=== PATIENT | female | born 1965 | race American Indian/Alaskan Native ===

== ENCOUNTER 2021-11-02 02:29 | Observation (INO) | payer OTHER ==
[2021-11-02] MEDS ORDERED: ONDANSETRON 4 MG/2 ML INJ IV ONE (02:50)
[2021-11-02] MEDS ORDERED: ATROPINE 0.1% (1 MG/10 ML) CARDIAC SYRINGE IV PRN (02:50)
[2021-11-02] MEDS ORDERED: PANTOPRAZOLE 40 MG INJ IV ONE (02:50)
--- NOTE | 2021-11-02 02:51 | Emergency Department Report ---
ED General Adult HPI - General Chief complaint: Chest Pain Stated complaint: CHEST PAIN Time Seen by Provider: 11/02/21 02:48 Source: patient, EMS (Verbal report received from emergency medical services. EMS documentation not available at time of chart dictation ), RN notes reviewed, old records reviewed Mode of arrival: Stretcher - History of Present Illness Initial comments: This is a pleasant and cooperative 56-year-old female. Her primary care provider is with the [facility]. Her past medical history includes hypertension, depression, fibroids, obesity, anemia, prediabetes. The patient is referred to this emergency room from a local acute care facility within the [facility]. Patient reportedly had several hours of chest pain, and develops near syncope, bradycardia, hypotension, nausea, and diaphoresis. She was given Zofran and atropine. Initially, heart rate in the 30s, now in the 70s. The patient states that she has central chest wall pain, which does not radiate to the back, arms or neck. The patient denies travel, surgery, immobilization, DVT and pulmonary embolism risk factors. Home medications include Norvasc, Lexapro, HCTZ, Atarax, and ibuprofen, as well as triamcinolone. In the acute care facility, she was given lactated Ringer's, Zofran, acetaminophen, atropine, and normal saline. EMS reports essentially unremarkable vital signs in the field, with exception of mild hypotension. They did not note any bradycardia. Received aspirin prior to prehospital arrival. -: Sudden, hour(s) Location: chest Radiation: non-radiation Consistency: constant Improves with: rest Worsens with: movement - Related Data Home Medications Medication Instructions Recorded Confirmed Last Taken hydroCHLOROthiazide [Hctz] 25 mg PO QDAY 10/07/12 10/07/12 10/07/12 lisinopriL [Zestril] 20 mg PO QDAY 10/07/12 10/07/12 10/07/12 Previous Rx's Medication Instructions Recorded Last Taken Type Docusate Sodium [Colace] 100 mg PO BID #20 capsule 10/27/12 Unknown Rx Starch 51%(Nf) [Anusol] 1 each SD BID #20 supp.rect 10/27/12 Unknown Rx polyethylene glycoL 3350 [Miralax] 17 gm PO DAILY #5 powder 10/27/12 Unknown Rx Promethazine [Phenergan TAB] 25 mg PO Q6HR PRN #20 tab 02/02/15 Unknown Rx traMADoL [Ultram] 50 mg PO Q6HR PRN #20 tablet 02/02/15 Unknown Rx Allergies Allergy/AdvReac Type Severity Reaction Status Date / Time acetaminophen [From Percocet] Allergy Rash Verified 10/07/12 11:28 oxycodone HCl [From Percocet] Allergy Rash Verified 10/07/12 11:28 prednisone Allergy Rash Verified 10/27/12 14:36 ED Review of Systems ROS: Stated complaint: CHEST PAIN Other details as noted in HPI Constitutional: diaphoresis, malaise, weakness. denies: fever Eyes: denies: eye discharge Respiratory: denies: wheezing Cardiovascular: chest pain Gastrointestinal: nausea. denies: vomiting, hematemesis, melena, hematochezia Neurological: weakness Psychiatric: anxiety Hematological/Lymphatic: denies: easy bleeding ED Past Medical Hx - Past Medical History Hx Hypertension: Yes Additional medical history: fibroids - Surgical History Additional Surgical History: c section - Social History Smoking Status: Never Smoker Substance Use Type: None - Medications Home Medications: Home Medications Medication Instructions Recorded Confirmed Last Taken Type hydroCHLOROthiazide [Hctz] 25 mg PO QDAY 10/07/12 10/07/12 10/07/12 History lisinopriL [Zestril] 20 mg PO QDAY 10/07/12 10/07/12 10/07/12 History Docusate Sodium [Colace] 100 mg PO BID #20 capsule 10/27/12 Unknown Rx Starch 51%(Nf) [Anusol] 1 each SD BID #20 supp.rect 10/27/12 Unknown Rx polyethylene glycoL 3350 [Miralax] 17 gm PO DAILY #5 powder 10/27/12 Unknown Rx Promethazine [Phenergan TAB] 25 mg PO Q6HR PRN #20 tab 02/02/15 Unknown Rx traMADoL [Ultram] 50 mg PO Q6HR PRN #20 tablet 02/02/15 Unknown Rx ED Physical Exam - General Limitations: No Limitations General appearance: alert, in no apparent distress, obese - Head Head exam: Present: atraumatic, normocephalic - Eye Eye exam: Present: normal appearance, EOMI. Absent: nystagmus - ENT ENT exam: Present: normal exam, normal orophraynx, mucous membranes moist, normal external ear exam - Neck Neck exam: Present: normal inspection, full ROM - Respiratory Respiratory exam: Present: normal lung sounds bilaterally, chest wall tenderness. Absent: respiratory distress, wheezes, rales, rhonchi, stridor, decreased breath sounds - Cardiovascular Cardiovascular Exam: Present: regular rate, normal rhythm, normal heart sounds. Absent: bradycardia, tachycardia, irregular rhythm, systolic murmur, diastolic murmur, rubs, gallop - GI/Abdominal GI/Abdominal exam: Present: soft. Absent: distended, tenderness, guarding, rebound, rigid, pulsatile mass - Extremities Exam Extremities exam: Present: normal inspection, full ROM, other (2+ pulses noted in the bilateral upper and lower extremities. There is no palpable cord. negative Homans sign. Muscular compartments are soft. The pelvis is stable.). Absent: pedal edema, calf tenderness - Back Exam Back exam: Present: normal inspection. Absent: tenderness, CVA tenderness (R), CVA tenderness (L), paraspinal tenderness, vertebral tenderness - Neurological Exam Neurological exam: Present: alert, oriented X3, other (No facial droop. Tongue midline. Extraocular movements intact bilaterally. Facial sensation intact to light touch in V1, V2, V3 distribution bilaterally. 5 and a 5 strength in 4 extremities. Sensation intact to light touch in 4 extremities.). Absent: motor sensory deficit - Psychiatric Psychiatric exam: Present: anxious - Skin Skin exam: Present: warm, dry, intact, normal color. Absent: rash ED Course Vital Signs 11/02/21 03:04 Temperature 98 F Pulse Rate 80 Respiratory 16 Rate Blood Pressure 93/50 [Right] O2 Sat by Pulse 98 Oximetry - Reevaluation(s) Reevaluation #1: 11/02/21 03:44 Differential diagnosis, including but not limited to: Orthostasis, vagal event, structural cardiac disease, acute coronary syndrome, electrolyte derangement, thyroid derangement, GERD, gastritis, hiatal hernia, costochondritis, pneumonia Assessment and plan: 56-year-old female, not currently tachycardic, tachypneic or hypoxic, who denies DVT and pulmonary embolism risk factors, low risk by Wells criteria for pulmonary embolism, equal pulses in the upper and lower extremities, unremarkable chest x-ray, no mediastinal mass, no pulsatile abdominal mass, aortic disease unlikely, with nonspecific chest pain, history of near syncope, nausea, diaphoresis and marked bradycardia. Heart rate currently in the 80s. Blood pressure in the high 90s. Patient is awake and alert, protecting airway, and anxious, but not in significant distress. Patient was seen at an outside [facility] acute care center, 911 was emergently activated, as she required more care and resources than what the acute care center could provide. I contacted the [facility] physician, Dr. Ivey. She authorizes this patient to be admitted to our facility for cardiac risk stratification and evaluation. Laboratory studies pending. We will treat the patient's pain. Patient received Tylenol in the acute care center, and also can tolerate morphine. She is agreeable to admission and hospitalization. Once laboratory studies have resulted, we will admit the patient to the medical service. She does not require atropine at this time. 11/02/21 04:14 ER EKG is markedly abnormal. There is ST abnormality in the inferior leads. Reciprocal changes are not present. The EKGs do not meet criteria for STEMI. Contacted security guard dispatcher on-call, Dr. Micaela Goldstein We discussed the patient's history, physical, laboratory studies and imaging studies, and EKG findings. He has also evaluated the patient's prehospital bradycardia EKG, as well as initial ER EKGs. He also recommends that this EKG does not meet criteria for activation of the cardiac catheterization lab. He advises initiation of heparin. We will obtain serial EKGs every 10 minutes for the next hour. We will continue to treat the patient's pain. Dr Micaela Goldstein indicates that himself or one of his colleagues will be able to follow in consultation. 11/02/21 04:41 Patient on cell phone. She is in no acute distress. She states that she is still having some pain and some discomfort. Multiple repeat serial EKGs are thus far not consistent with a STEMI 11/02/21 05:12 Patient resting comfortably in no acute distress. Multiple repeat EKGs are not consistent with a STEMI. Hospital physician, Dr. Micaela hBatia to admit to [facility] ED Medical Decision Making - Lab Data Result diagrams: 11/02/21 03:02 11/02/21 03:02 Vital Signs 11/02/21 03:04 Temperature 98 F Pulse Rate 80 Respiratory 16 Rate Blood Pressure 93/50 [Right] O2 Sat by Pulse 98 Oximetry Lab Results 11/02/21 11/02/21 Range/Units 03:02 03:02 WBC 11.7 H (4.5-11.0) K/mm3 RBC 4.68 (3.65-5.03) M/mm3 Hgb 13.3 (10.1-14.3) gm/dl Hct 40.5 (30.3-42.9) % MCV 87 (79-97) fl MCH 28 (28-32) pg MCHC 33 (30-34) % RDW 13.8 (13.2-15.2) % Plt Count 243 (140-440) K/mm3 Lymph % (Auto) 10.7 L (13.4-35.0) % [place] % (Auto) 7.5 H (0.0-7.3) % Eos % (Auto) 0.3 (0.0-4.3) % Baso % (Auto) 0.6 (0.0-1.8) % Lymph # (Auto) 1.3 (1.2-5.4) K/mm3 [place] # (Auto) 0.9 H (0.0-0.8) K/mm3 Eos # (Auto) 0.0 (0.0-0.4) K/mm3 Baso # (Auto) 0.1 (0.0-0.1) K/mm3 Seg Neutrophils % 80.9 H (40.0-70.0) % Seg Neutrophils # 9.5 H (1.8-7.7) K/mm3 PT 13.2 (12.2-14.9) Sec. INR 0.88 (0.87-1.13) APTT 30.3 (24.2-36.6) Sec. - EKG Data -: EKG Interpreted by Ms - EKG Data 11/02/21 03:42 Prehospital EKG is interpreted. Prehospital EKG performed at 1: 21 AM, shows bradycardia, with a heart rate of 38 bpm. This is sinus, with a normal axis, and normal intervals. There is motion artifact. This is not a STEMI. Prehospital EKG performed at 1: 0 8 AM shows sinus rhythm, with a rate of 74 bpm . Normal axis, normal P wave axis, borderline left ventricular hypertrophy, nonspecific ST abnormality. This is an abnormal EKG. This is not a STEMI EMS EKG is interpreted at 03: 00 AM Sinus rhythm, with a rate of approximately 83 bpm. There is a normal axis, there is normal P wave axis, there is motion artifact, and the QTC is 4 1 6 ms. This is an abnormal EKG. This is not a STEMI - Radiology Data Radiology results: pending, image reviewed CHEST 1 VIEW 11/02/2021 3:11 AM INDICATION / CLINICAL INFORMATION: Chest Pain. COMPARISON: None available. FINDINGS: SUPPORT DEVICES: None. HEART / MEDIASTINUM: The cardiac silhouette appears enlarged, but this may be accentuated by AP technique. LUNGS / PLEURA: No significant pulmonary or pleural abnormality. No pneumothorax. ADDITIONAL FINDINGS: None IMPRESSION: 1. No acute chest process. Signer Name: Dariel Castorena MD Signed: 11/02/2021 2:46 AM Workstation Name: [id number] Critical Care Time: Yes Critical care time in (mins) excluding proc time.: 45 Critical care attestation.: If time is entered above; I have spent that time in minutes in the direct care of this critically ill patient, excluding procedure time. ED Disposition Clinical Impression: History of bradycardia, Acute chest pain, Near syncope Disposition: 09 ADMITTED INPATIENT Is pt being admited?: Yes Does the pt Need Aspirin: No (Administered by EMS) Condition: Stable Instructions: Chest Pain (ED) Referrals: JUDY COX [Other] - 3-5 Days Heart Score - HEART Score History: Moderately suspicious EKG: Non-specific Age: 45-65 Risk factors: 1-2 risk factors Troponin: < normal limit HEART Score: 4 - EKG Read Time Time EKG Completed: 03:00 EKG Read Time: 03:05 (EMS EKG)
[2021-11-02] MEDS ORDERED: MORPHINE 4 MG/1 ML INJ IV ONE (03:05)
[2021-11-02 03:31] LABS: Basophils # (Auto) 0.1 K/mm3 (0.0-0.1); Basophils % (Auto) 0.6 % (0.0-1.8); Eosinophils % (Auto) 0.3 % (0.0-4.3); Hematocrit 40.5 % (30.3-42.9); Hemoglobin 13.3 gm/dl (10.1-14.3); Lymphocytes # (Auto) 1.3 K/mm3 (1.2-5.4); Lymphocytes % (Auto) 10.7 % (13.4-35.0); Mean Corpuscular HGB Conc 33 % (30-34); Mean Corpuscular Volume 87 fl (79-97); Monocytes # (Auto) 0.9 K/mm3 (0.0-0.8); Monocytes % (Auto) 7.5 % (0.0-7.3); Platelet Count 243 K/mm3 (140-440); Red Blood Count 4.68 M/mm3 (3.65-5.03); Red Cell Distribution Width 13.8 % (13.2-15.2)
[2021-11-02 03:39] LABS: INR 0.88 (0.87-1.13); Partial Thromboplastin Time 30.3 Sec. (24.2-36.6)
[2021-11-02 03:48] LABS: Alanine Aminotransferase 25 units/L (7-56); Albumin 4.1 g/dL (3.9-5); BUN/Creatinine Ratio 19; Blood Urea Nitrogen 15 mg/dL (7-17); Calcium 8.7 mg/dL (8.4-10.2); Hemolysis Index 17
--- NOTE | 2021-11-02 03:51 | XRay Report ---
CHEST 1 VIEW 11/02/2021 3:11 AM INDICATION / CLINICAL INFORMATION: Chest Pain. COMPARISON: None available. FINDINGS: SUPPORT DEVICES: None. HEART / MEDIASTINUM: The cardiac silhouette appears enlarged, but this may be accentuated by AP techn ique. LUNGS / PLEURA: No significant pulmonary or pleural abnormality. No pneumothorax. ADDITIONAL FINDINGS: None IMPRESSION: 1. No acute chest process. Signer Name: Dariel Castorena MD Signed: 11/02/2021 3:46 AM Workstation Name: [email or web address]
[2021-11-02] MEDS ORDERED: HEPARIN BOLUS 10,000 UNIT/10 ML VIAL IV ONE (04:13)
[2021-11-02] MEDS ORDERED: MORPHINE 4 MG/1 ML INJ IV PRN (04:21)
[2021-11-02] MEDS ORDERED: HEPARIN PRN BOLUS(standard intensity drip) IV (04:35)
[2021-11-02] MEDS ORDERED: HEPARIN/ 0.45% NACL DRIP 25,000 UNIT/250 ML BAG IV SCH (05:00)
[2021-11-02] MEDS: SODIUM CHLORIDE 0.9% 1000 ML 1,000 ML IV ONE (05:11)
[2021-11-02] MEDS ORDERED: NALOXONE 0.4 MG/1 ML INJ IV PRN (05:13)
[2021-11-02] MEDS ORDERED: ACETAMINOPHEN 325 MG TAB PO PRN (05:13)
[2021-11-02] MEDS: MORPHINE 2 MG/1 ML INJ IV PRN ×2 (08:19→16:20)
[2021-11-02] MEDS: ONDANSETRON 4 MG/2 ML INJ IV PRN ×2 (08:19→16:20)
[2021-11-02] MEDS ORDERED: KETOROLAC 30 MG/1 ML INJ IV NR (10:30)
[2021-11-02] MEDS ORDERED: MIDAZOLAM 2 MG/2 ML INJ ONE (10:41)
[2021-11-02] MEDS ORDERED: NITROGLYCERIN SYRINGE 3 ML ONE (10:41)
[2021-11-02] MEDS ORDERED: fentaNYL 100 MCG/2 ML INJ ONE (10:41)
[2021-11-02] MEDS ORDERED: HEPARIN 10,000 UNITS/10 ML VIAL ONE (10:41)
[2021-11-02] MEDS ORDERED: HEPARIN/NS 5000 UNIT/500ML 1,000 ML IR ONE (10:41)
[2021-11-02] MEDS ORDERED: SODIUM CHLORIDE 0.9% 500 ML 500 ML ONE (10:42)
[2021-11-02] MEDS ORDERED: LIDOCAINE (2%) 20 MG/1 ML VIAL 20 ML MDV INFILTRATI ONE (10:42)
[2021-11-02] MEDS: VERAPAMIL 5 MG/2 ML INJ ONE ×2 (10:50→11:25)
[2021-11-02] MEDS ORDERED: KETOROLAC 30 MG/1 ML INJ IV ONE (12:00)
--- NOTE | 2021-11-02 12:00 | Consultation ---
History of Present Illness Consult date: 11/02/21 Requesting physician: ISAAC MORAN Consult reason: chest pain History of present illness: This patient is a 56-year-old female with a significant history of hypertension, pre-DM, anemia, depression, fibroids. She is previously unknown to our practice, followed by [facility]. Patient presents to [facility] ER via EMS for chief complaint of chest pain which she describes as 10 out of 10 dull, nonradiating, constant, with no palliative or provoking factors, with associated nausea, diaphoresis, hypotension, bradycardia. Repeat twelve- lead shows inferior ST segment elevation. Patient was taken [facility] this a.m. which revealed normal coronary arteries. Normal LVEF. Patient denies any weakness, dizziness, shortness of breath, nausea vomiting diarrhea, abdominal pain or recent illness or exposure. Echocardiogram is pending. Past History Past Medical History: other (See HPI) Medications and Allergies Allergies Allergy/AdvReac Type Severity Reaction Status Date / Time acetaminophen [From Percocet] Allergy Rash Verified 10/07/12 11:28 oxycodone HCl [From Percocet] Allergy Rash Verified 10/07/12 11:28 prednisone Allergy Rash Verified 10/27/12 14:36 Home Medications Medication Instructions Recorded Confirmed Last Taken Type hydroCHLOROthiazide [Hctz] 25 mg PO QDAY 10/07/12 10/07/12 10/07/12 History lisinopriL [Zestril] 20 mg PO QDAY 10/07/12 10/07/12 10/07/12 History Docusate Sodium [Colace] 100 mg PO BID #20 capsule 10/27/12 Unknown Rx Starch 51%(Nf) [Anusol] 1 each [place] BID #20 supp.rect 10/27/12 Unknown Rx polyethylene glycoL 3350 [Miralax] 17 gm PO DAILY #5 powder 10/27/12 Unknown Rx Promethazine [Phenergan TAB] 25 mg PO Q6HR PRN #20 tab 02/02/15 Unknown Rx traMADoL [Ultram] 50 mg PO Q6HR PRN #20 tablet 02/02/15 Unknown Rx Active Meds: Active Medications Acetaminophen (Acetaminophen 325 Mg Tab) 650 mg PO Q4H PRN PRN Reason: Pain MILD(1-3)/Fever >100.5/SNIDER Atropine Sulfate (Atropine 0.1% (1 Mg/10 Ml) Cardiac Syringe) 0.5 mg IV PRN PRN PRN Reason: Bradycardia Heparin Sodium (Porcine) (Heparin Prn Bolus(Standard Intensity Drip)) 4,000 unit 40 unit/kg (4000 unit) IV Q6H PRN PRN Reason: For Heparin Anti-Xa < 0.1 Heparin Sodium/Sodium Chloride (Heparin/ 0.45% Nacl-25,000 Unit/250 Ml) 25,000 unit in 250 mls @ 9.73 mls/hr IV TITRATE [facility]; Protocol Last Admin: 11/02/21 05:11 Dose: 11 units/kg/hr, 9.73 mls/hr Ketorolac Tromethamine (Ketorolac 30 Mg/1 Ml Inj) 30 mg IV ONCE ONE Stop: 11/02/21 12:01 Morphine Sulfate (Morphine 2 Mg/1 Ml Inj) 2 mg IV Q4H PRN PRN Reason: Pain, Moderate (4-6) Last Admin: 11/02/21 08:19 Dose: 2 mg Naloxone HCl (Naloxone 0.4 Mg/1 Ml Inj) 0.1 mg IV Q2MIN PRN PRN Reason: Res Rate </= 8 or 02 SAT < 92% Ondansetron HCl (Ondansetron 4 Mg/2 Ml Inj) 4 mg IV Q8H PRN PRN Reason: Nausea And Vomiting Last Admin: 11/02/21 08:19 Dose: 4 mg Sodium Chloride (Sodium Chloride 0.9% 10 Ml Flush Syringe) 10 ml IV BID [facility] Last Admin: 11/02/21 09:35 Dose: 10 ml Sodium Chloride (Sodium Chloride 0.9% 10 Ml Flush Syringe) 10 ml IV PRN PRN PRN Reason: LINE FLUSH Review of Systems Constitutional: no weight loss, no weight gain, no fever, no chills, no sweats, no night sweats Ears, nose, mouth and throat: no ear pain, no ear discharge, no tinnitis, no decreased hearing, no nose pain, no nasal congestion, no nasal discharge, no sinus pressure, no sinus pain Cardiovascular: chest pain, no orthopnea, no palpitations, no rapid/irregular heart beat, no edema, no syncope, no lightheadedness, no shortness of breath Respiratory: no cough, no cough with sputum, no excessive sputum, no hemoptysis, no shortness of breath Gastrointestinal: no abdominal pain, no nausea, no vomiting, no diarrhea Musculoskeletal: no neck stiffness, no neck pain, no shooting arm pain, no arm numbness/tingling, no low back pain, no shooting leg pain, no leg numbness/tingling Integumentary: no rash, no pruritis, no redness, no sores, no wounds Neurological: no head injury, no transient paralysis, no paralysis, no weakness, no parathesias, no numbness, no tingling, no seizures, no syncope Psychiatric: no anxiety, no memory loss, no change in sleep habits Endocrine: no cold intolerance, no heat intolerance Hematologic/Lymphatic: no easy bruising, no easy bleeding Allergic/Immunologic: no urticaria Physical Examination Last Vital Signs Temp 98 F 11/02/21 03:04 Pulse 59 L 11/02/21 06:20 Resp 25 H 11/02/21 06:20 BP 81/44 11/02/21 06:20 Pulse Ox 96 11/02/21 06:20 General appearance: mild distress HEENT: Positive: PERRL Neck: Positive: neck supple Cardiac: Positive: Reg Rate and Rhythm Lungs: Positive: Normal Exam Neuro: Positive: Grossly Intact Abdomen: Positive: Unremarkable, Soft, Active Bowel Sounds Skin: Positive: Clear Musculoskeletal: No Fluid Collection, No Pain, Normal Range of Motion Extremities: Present: normal. Absent: edema Results 11/02/21 03:02 11/02/21 03:02 Cardiac Enzymes 11/02/21 Range/Units 03:02 AST 38 (5-40) units/L Coagulation 11/02/21 Range/Units 03:02 PT 13.2 (12.2-14.9) Sec. INR 0.88 (0.87-1.13) APTT 30.3 (24.2-36.6) Sec. CBC 11/02/21 Range/Units 03:02 WBC 11.7 H (4.5-11.0) K/mm3 RBC 4.68 (3.65-5.03) M/mm3 Hgb 13.3 (10.1-14.3) gm/dl Hct 40.5 (30.3-42.9) % Plt Count 243 (140-440) K/mm3 Lymph # (Auto) 1.3 (1.2-5.4) K/mm3 [place] # (Auto) 0.9 H (0.0-0.8) K/mm3 Eos # (Auto) 0.0 (0.0-0.4) K/mm3 Baso # (Auto) 0.1 (0.0-0.1) K/mm3 Comprehensive Metabolic Panel 11/02/21 Range/Units 03:02 Sodium 138 (137-145) mmol/L Potassium 3.7 (3.6-5.0) mmol/L Chloride 99.5 (98-107) mmol/L Carbon Dioxide 24 (22-30) mmol/L BUN 15 (7-17) mg/dL Creatinine 0.8 (0.6-1.2) mg/dL Glucose 115 H (65-100) mg/dL Calcium 8.7 (8.4-10.2) mg/dL AST 38 (5-40) units/L ALT 25 (7-56) units/L Alkaline Phosphatase 83 (35-129) units/L Total Protein 7.2 (6.3-8.2) g/dL Albumin 4.1 (3.9-5) g/dL - Imaging and Cardiology Echo: pending Cardiac cath: report reviewed ([facility] 11/02/2021: Normal coronary arteries) EKG: report reviewed, image reviewed EKG interpretations - Telemetry EKG Rhythm: Sinus Rhythm - EKG Sinus rhythms and dysrhythmias: sinus rhythm Assessment and Plan Chest pain in setting of normal coronary arteries * EKG shows possible ischemic changes. Troponin is negative x2. [facility] this a.m. shows normal coronary arteries. * Discontinue heparin drip. * Echocardiogram is pending Pericarditis * Initiate indomethacin 25 mg 3 times daily p.o. * Continue to monitor on telemetry DVT prophylaxis * Heparin SQ Echocardiogram is pending. We will follow This patient was seen in conjunction with Dr Micaela Goldstein who agrees with this assessment and plan of care - Patient Problems (1) DVT prophylaxis Current Visit: Yes Status: Acute (2) Acute chest pain Current Visit: Yes Status: Acute (3) History of bradycardia Current Visit: Yes Status: Acute (4) Near syncope Current Visit: Yes Status: Acute
--- NOTE | 2021-11-02 12:18 | History and Physical Report ---
History of Present Illness Date of examination: 11/02/21 Date of admission: 11/02/21 05:13 Chief complaint: CP History of present illness: his patient is a 56-year-old female with a significant history of hypertension, pre-DM, anemia, depression, fibroids followed by [facility] presented to our facility and [facility] ER via EMS for chief complaint of chest pain. The patient describes the pain as 10 out of 10 dull, nonradiating, constant, with no palliative or provoking factors, with associated nausea, diaphoresis, hypotension, bradycardia. Patient denied any weakness, dizziness, shortness of breath, nausea vomiting diarrhea, abdominal pain or recent illness or exposure. Past History Past Medical History: diabetes, hypertension, other (Fibroids,) Past Surgical History: No surgical history Social history: no significant social history Family history: no significant family history Medications and Allergies Allergies Allergy/AdvReac Type Severity Reaction Status Date / Time acetaminophen [From Percocet] Allergy Rash Verified 10/07/12 11:28 oxycodone HCl [From Percocet] Allergy Rash Verified 10/07/12 11:28 prednisone Allergy Rash Verified 10/27/12 14:36 Home Medications Medication Instructions Recorded Confirmed Last Taken Type hydroCHLOROthiazide [Hctz] 25 mg PO QDAY 10/07/12 10/07/12 10/07/12 History lisinopriL [Zestril] 20 mg PO QDAY 10/07/12 10/07/12 10/07/12 History Docusate Sodium [Colace] 100 mg PO BID #20 capsule 10/27/12 Unknown Rx Starch 51%(Nf) [Anusol] 1 each GA BID #20 supp.rect 10/27/12 Unknown Rx polyethylene glycoL 3350 [Miralax] 17 gm PO DAILY #5 powder 10/27/12 Unknown Rx Promethazine [Phenergan TAB] 25 mg PO Q6HR PRN #20 tab 02/02/15 Unknown Rx traMADoL [Ultram] 50 mg PO Q6HR PRN #20 tablet 02/02/15 Unknown Rx Active Meds: Active Medications Acetaminophen (Acetaminophen 325 Mg Tab) 650 mg PO Q4H PRN PRN Reason: Pain MILD(1-3)/Fever >100.5/SNIDER Atropine Sulfate (Atropine 0.1% (1 Mg/10 Ml) Cardiac Syringe) 0.5 mg IV PRN PRN PRN Reason: Bradycardia Indomethacin (Indomethacin 25 Mg Cap) 25 mg PO Q8HR [facility] Ketorolac Tromethamine (Ketorolac 30 Mg/1 Ml Inj) 30 mg IV ONCE ONE Stop: 11/02/21 12:01 Morphine Sulfate (Morphine 2 Mg/1 Ml Inj) 2 mg IV Q4H PRN PRN Reason: Pain, Moderate (4-6) Last Admin: 11/02/21 08:19 Dose: 2 mg Naloxone HCl (Naloxone 0.4 Mg/1 Ml Inj) 0.1 mg IV Q2MIN PRN PRN Reason: Res Rate </= 8 or 02 SAT < 92% Ondansetron HCl (Ondansetron 4 Mg/2 Ml Inj) 4 mg IV Q8H PRN PRN Reason: Nausea And Vomiting Last Admin: 11/02/21 08:19 Dose: 4 mg Sodium Chloride (Sodium Chloride 0.9% 10 Ml Flush Syringe) 10 ml IV BID EROS Last Admin: 11/02/21 09:35 Dose: 10 ml Sodium Chloride (Sodium Chloride 0.9% 10 Ml Flush Syringe) 10 ml IV PRN PRN PRN Reason: LINE FLUSH Review of Systems All systems: negative Exam - Constitutional Vitals: Temp Pulse Resp BP Pulse Ox 98 F 59 L 25 H 81/44 96 11/02/21 03:04 11/02/21 06:20 11/02/21 06:20 11/02/21 06:20 11/02/21 06:20 General appearance: Present: no acute distress, well-nourished - EENT Eyes: Present: PERRL ENT: hearing intact, clear oral mucosa - Neck Neck: Present: supple, normal ROM - Respiratory Respiratory effort: normal Respiratory: bilateral: CTA - Cardiovascular Heart Sounds: Present: S1 & S2. Absent: rub, click - Extremities Extremities: pulses symmetrical, No edema Peripheral Pulses: within normal limits - Abdominal General gastrointestinal: Present: soft, non-tender, non-distended, normal bowel sounds Female genitourinary: Present: normal - Integumentary Integumentary: Present: clear, warm, dry - Musculoskeletal Musculoskeletal: gait normal, strength equal bilaterally - Psychiatric Psychiatric: appropriate mood/affect, intact judgment & insight - Neurologic Neurologic: CNII-XII intact, moves all extremities HEART Score - HEART Score EKG: Non-specific Age: 45-65 Risk factors: 1-2 risk factors Troponin: Troponin T < 0.010 ng/mL (0.00-0.029) 11/02/21 09:38 Troponin: < normal limit Results - Labs CBC & Chem 7: 11/02/21 03:02 11/02/21 03:02 Labs: Laboratory Last Values WBC 11.7 K/mm3 (4.5-11.0) H 11/02/21 03:02 RBC 4.68 M/mm3 (3.65-5.03) 11/02/21 03:02 Hgb 13.3 gm/dl (10.1-14.3) 11/02/21 03:02 Hct 40.5 % (30.3-42.9) 11/02/21 03:02 MCV 87 fl (79-97) 11/02/21 03:02 MCH 28 pg (28-32) 11/02/21 03:02 MCHC 33 % (30-34) 11/02/21 03:02 RDW 13.8 % (13.2-15.2) 11/02/21 03:02 Plt Count 243 K/mm3 (140-440) 11/02/21 03:02 Lymph % (Auto) 10.7 % (13.4-35.0) L 11/02/21 03:02 [place] % (Auto) 7.5 % (0.0-7.3) H 11/02/21 03:02 Eos % (Auto) 0.3 % (0.0-4.3) 11/02/21 03:02 Baso % (Auto) 0.6 % (0.0-1.8) 11/02/21 03:02 Lymph # (Auto) 1.3 K/mm3 (1.2-5.4) 11/02/21 03:02 [place] # (Auto) 0.9 K/mm3 (0.0-0.8) H 11/02/21 03:02 Eos # (Auto) 0.0 K/mm3 (0.0-0.4) 11/02/21 03:02 Baso # (Auto) 0.1 K/mm3 (0.0-0.1) 11/02/21 03:02 Seg Neutrophils % 80.9 % (40.0-70.0) H 11/02/21 03:02 Seg Neutrophils # 9.5 K/mm3 (1.8-7.7) H 11/02/21 03:02 PT 13.2 Sec. (12.2-14.9) 11/02/21 03:02 INR 0.88 (0.87-1.13) 11/02/21 03:02 APTT 30.3 Sec. (24.2-36.6) 11/02/21 03:02 Sodium 138 mmol/L (137-145) 11/02/21 03:02 Potassium 3.7 mmol/L (3.6-5.0) 11/02/21 03:02 Chloride 99.5 mmol/L (98-107) 11/02/21 03:02 Carbon Dioxide 24 mmol/L (22-30) 11/02/21 03:02 Anion Gap 18 mmol/L 11/02/21 03:02 BUN 15 mg/dL (7-17) 11/02/21 03:02 Creatinine 0.8 mg/dL (0.6-1.2) 11/02/21 03:02 Estimated GFR > 60 ml/min 11/02/21 03:02 BUN/Creatinine Ratio 19 % 11/02/21 03:02 Glucose 115 mg/dL (65-100) H 11/02/21 03:02 Calcium 8.7 mg/dL (8.4-10.2) 11/02/21 03:02 Magnesium 1.90 mg/dL (1.7-2.3) 11/02/21 03:02 Total Bilirubin 0.60 mg/dL (0.1-1.2) 11/02/21 03:02 AST 38 units/L (5-40) 11/02/21 03:02 ALT 25 units/L (7-56) 11/02/21 03:02 Alkaline Phosphatase 83 units/L (35-129) 11/02/21 03:02 Troponin T < 0.010 ng/mL (0.00-0.029) 11/02/21 09:38 Total Protein 7.2 g/dL (6.3-8.2) 11/02/21 03:02 Albumin 4.1 g/dL (3.9-5) 11/02/21 03:02 Albumin/Globulin Ratio 1.3 % 11/02/21 03:02 TSH 4.040 mlU/mL (0.270-4.200) 11/02/21 03:02 Free T4 1.14 ng/dL (0.76-1.46) 11/02/21 03:02 Assessment and Plan Assessment and plan: This patient is a 56-year-old female with a significant history of hypertension, pre-DM, anemia, depression, fibroids followed by [place] presented to [facility] ER via EMS for chief complaint of chest pain. Patient had an EKG that showed inferior ST segment elevation. Chest pain Pericarditis Abnormal EKG 11/02/2021. Initially, patient is EKG show possible ischemic changes but troponin negative x2. Patient underwent C this a.m. that showed normal cor onary arteries. Patient initially initiated on heparin drip which was discontinued. Echocardiogram is pending. Cardiology consulted and believes patient has a component of pericarditis. Patient initiated on indomethacin 25 mg 3 times daily and we will monitor closely on telemetry.
--- NOTE | 2021-11-02 12:54 | Cardiac Catherization Report ---
DATE OF PROCEDURE: 11/02/2021 CARDIAC CATHETERIZATION REPORT ROOM: 476. REFERRING PHYSICIAN: Hospitalist service. INDICATIONS FOR PROCEDURE: The patient is a very pleasant 56-year-old -Cypriot female with multiple risk factors, ongoing chest pain for about a week. Initial EKG showed no convincing evidence of ST or myocardial infarction and first troponin was negative; however, she continues to have chest pain. ST elevation is more diffuse now, referred for urgent left heart catheterization. Risks, benefits, potential alternatives explained at length prior to obtaining informed consent. No history of dye allergy or renal issues. Creatinine is normal. PROCEDURE IN DETAIL: The patient was brought to laborer construction or leak gang in an urgent fashion, prepped and draped in sterile fashion. Samm's test in right hand is normal. 2 mL of 2% lidocaine used to anesthetize the right wrist. A standard 6-Tamazight hydrophilic sheath used to cannulate the right radial artery via modified Seldinger technique. All exchanges performed to exchange a J-tip guidewire. JL3.5 catheter was used to engage the left main. No dampening or ventricularization. Cineangiography performed in all projections. JR4 catheter used to cross the aortic valve under fluoroscopic guidance. Left ventriculography performed in 30-degree BARNES and 30-degree YORUBA projections via hand injections, catheter flushed. Manual pullback performed with continuous pressure monitoring. Catheter used to engage the right coronary. No dampening or ventricularization. Cineangiography performed in all projections. Next, catheter removed from the body of wire, sheath removed. Manual pressure used to achieve hemostasis. I directly supervised the administration of moderate sedation with fentanyl and Versed from 10:40 a.m. to 11:05 a.m. No immediate complications. DATA: The patient remained in normal sinus rhythm throughout the procedure. Aortic pressure is 110/60, LV pressure is 110, LVEDP of 20 mmHg. Left ventriculography reveals normal systolic performance, estimated ejection fraction 55-60%. No evidence of aortic stenosis. CORONARY ANATOMY: This is a right dominant system. Right coronary artery is a moderate sized vessel, it courses AV groove. No significant disease. Left main without significant disease, bifurcates into left anterior descending, left circumflex. Left anterior descending artery is a moderate sized vessel, it courses anterior interventricular groove, wraps around the apex. No significant disease. Left circumflex is a moderate sized vessel, it courses AV groove. No significant disease. This is a right dominant system. CONCLUSIONS: * No angiographic evidence of significant epicardial coronary artery disease in this right dominant system. * Normal left ventricular systolic performance, estimated ejection fraction 55-60%. * No evidence of aortic stenosis. * High normal LVEDP. The patient is clinically stable at this point, continues to have chest pain, was atypical, questionable pericarditis versus noncardiac chest pain versus musculoskeletal. Discontinue IV heparin, consider adding indomethacin, follow up echocardiography. Results of procedure explained to the patient at length. All questions were addressed. We will continue to follow. TID: [id number] RECEIPT: [id number] MARIA ANTONIA/ASHISH/SHOSHANA/CAITIE
[2021-11-02] MEDS: INDOMETHACIN 25 MG CAP PO SCH ×2 (16:13→21:40)
[2021-11-02] MEDS: HEPARIN 5,000 UNIT/1 ML VIAL SUB-Q SCH (21:40)
[2021-11-03] MEDS: INDOMETHACIN 25 MG CAP PO SCH (06:24)
[2021-11-03 08:17] LABS: Chol/HDL Ratio 1.97 %
[2021-11-03] MEDS: HEPARIN 5,000 UNIT/1 ML VIAL SUB-Q SCH (09:14)
[2021-11-03 11:41] VITALS: BP 121/64
--- NOTE | 2021-11-03 12:04 | Discharge Summary ---
Providers - Providers Date of Admission: 11/02/21 05:13 Date of discharge: 11/03/21 Attending physician: ESTEFANI ENG 11/02/21 04:04 Consult to Physician [CONS] Urgent Comment: Consulting Provider: RIANA KINSEY Physician Instructions: Reason For Exam: acute cp Hospitalization Reason for admission: CP Condition: Stable Hospital course: 56-year-old female with a significant history of hypertension, pre-DM, anemia, depression, fibroids followed by [place] presented to our facility and [facility] ER via EMS for chief complaint of chest pain. EKG was completed and revealed possible ischemic changes. However troponin was negative x2. LHC was completed that showed normal coronaries. Patient was initially treated with heparin drip which was later discontinued. Echocardiogram was completed and patient reportedly had mild concentric left ventricular hypertrophy with a left ventricular systolic function normal and EF of 55-60%. Mild diastolic dysfunction present. Cardiology consulted on the patient and reported acute pericarditis. The patient was treated with indomethacin 25 mg 3 times daily with improvement. Cardiology recommends discharge home with indomethacin. Dedicated discharge time 32 minutes. Disposition: 01 HOME / SELF CARE / HOMELESS Final Discharge Diagnosis (Prints w/discharge instructions): Acute pericarditis Core Measure Documentation - Palliative Care Palliative Care/ Comfort Measures: Not Applicable - Core Measures Any of the following diagnoses?: none Exam - Constitutional Vitals: Temp Pulse Resp BP Pulse Ox 98.0 F 77 16 121/64 91 11/03/21 11:29 11/03/21 11:29 11/03/21 11:29 11/03/21 11:29 11/03/21 11:29 General appearance: Present: no acute distress, well-nourished - EENT Eyes: Present: PERRL ENT: hearing intact, clear oral mucosa - Neck Neck: Present: supple, normal ROM - Respiratory Respiratory effort: normal Respiratory: bilateral: CTA - Cardiovascular Heart Sounds: Present: S1 & S2. Absent: rub, click - Extremities Extremities: pulses symmetrical, No edema Peripheral Pulses: within normal limits - Abdominal General gastrointestinal: Present: soft, non-tender, non-distended, normal bowel sounds Female genitourinary: Present: normal - Integumentary Integumentary: Present: clear, warm, dry - Musculoskeletal Musculoskeletal: gait normal, strength equal bilaterally - Psychiatric Psychiatric: appropriate mood/affect, intact judgment & insight - Neurologic Neurologic: CNII-XII intact, moves all extremities Plan Activity: advance as tolerated Weight Bearing Status: Weight Bear as Tolerated Diet: regular Follow up with: JUDY COX [Other] - 3-5 Days Prescriptions: Indomethacin [Indocin] 25 mg PO Q8HR #21 capsule
--- NOTE | 2021-11-03 12:11 | Progress Note ---
Subjective Date of service: 11/03/21 Principal diagnosis: Pericarditis Interval history: This patient is a 56-year-old female with a significant history of hypertension, pre-DM, anemia, depression, fibroids with a chief complaint of chest pain Chest pain in setting of normal coronary arteries Pericarditis DVT prophylaxis Echo 11/03/2021-EF 55 to 60%. Mild concentric LVH. Mild diastolic dysfunction is present impaired relaxation pattern. Mild circumferential pericardial effusion Cardiac cath 11/02/2021-no angiographic evidence of significant epicardial coronary artery disease in his right dominant system. Estimated EF 55 to 60%. No evidence of aortic stenosis. Plan: EKG shows possible ischemic changes. Troponin is negative x2. LHC this a.m. shows normal coronary arteries. Echocardiogram results noted above Continue indomethacin 25 mg 3 times daily p.o. x 1 week Patient should have follow up echo in 1 month with their [place] providers Discussed plan of care with patient who verbalized understanding and acknowled gement Cardiac status otherwise stable for discharge Patient follow with a primary [place] providers in 1 to 2 weeks after discharge This patient was seen in conjunction with Dr Micaela Goldstein who agrees with this assessment and plan of care Objective Vital Signs Temp Pulse Pulse Resp BP BP Pulse Ox 11/03/21 11:29 98.0 F 77 16 121/64 91 11/03/21 10:00 77 18 100 11/03/21 06:00 82 82 18 100 11/03/21 03:29 98.2 F 77 14 115/65 92 11/02/21 23:22 98.3 F 14 116/62 11/02/21 22:00 81 11/02/21 21:00 98.3 F 81 12 97/58 91 11/02/21 19:22 98.3 F 10 L 97/58 11/02/21 15:39 99.2 F 81 18 111/67 99 11/02/21 13:49 70 - Physical Examination HEENT: Positive: PERRL Neck: Positive: neck supple Neuro: Positive: Grossly Intact Abdomen: Positive: Unremarkable, Soft, Active Bowel Sounds Skin: Positive: Clear Musculoskeletal: No Fluid Collection, No Pain, Normal Range of Motion Extremities: Present: normal. Absent: edema - Labs and Meds Lipids 11/03/21 Range/Units 04:00 Triglycerides 39 (2-149) mg/dL Cholesterol 132 (50-199) mg/dL HDL Cholesterol 67 H (40-59) mg/dL Cholesterol/HDL Ratio 1.97 % - Imaging and Cardiology EKG: report reviewed, image reviewed Echo: pending Cardiac cath: report reviewed ([facility] 11/02/2021: Normal coronary arteries) - EKG Sinus rhythms and dysrhythmias: sinus rhythm
--- NOTE | 2021-11-03 17:40 | Electrocardiograph Report ---
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
--- NOTE | 2021-11-03 17:40 | Electrocardiograph Report ---
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
--- NOTE | 2021-11-03 17:43 | Electrocardiograph Report ---
[facility] Test Date: 2021-11-03 Test Time: 07:38:54 Pat Name: VASQUEZ ENGLE Department: Room: A476 1 Gender: F Legal Counsel: WOODY : 1965 Requested By: ISAAC MORAN Order Number: [id number] Reading MD: Erica Izaguirre Measurements Intervals [place] Rate: 75 P: 59 [place]: 172 QRS: 30 QRSD: 98 T: 42 QT: 361 QTc: 404 Interpretive Statements Sinus rhythm Nonspecific ST elevation, consider early repolarization, pericarditis or acute injury Compared to ECG 11/02/2021 05:02:07 No significant change Electronically Signed On 11-03-2021 17:42:35 EDT by Erica Izaguirre
--- NOTE | 2021-11-05 12:13 | Electrocardiograph Report ---
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
--- NOTE | 2021-11-05 12:15 | Electrocardiograph Report ---
[facility] Test Date: 2021-11-02 Test Time: 04:11:11 Pat Name: VASQUEZ ENGLE Department: Room: A476 1 Gender: F Staff Internist Office Based Only: NURSE : 1965 Requested By: ISAAC MORAN Order Number: [id number] Reading MD: Kuldip Celis Measurements Intervals [place] Rate: 70 P: 44 [place]: 200 QRS: 30 QRSD: 91 T: 46 QT: 389 QTc: 419 Interpretive Statements Sinus rhythm ST elevation, consider inferior injury No previous ECG available for comparison Electronically Signed On 11-05-2021 9:15:00 PDT by Kuldip Celis
--- NOTE | 2021-11-05 12:41 | Electrocardiograph Report ---
[facility] Test Date: 2021-11-02 Test Time: 03:42:42 Pat Name: VASQUEZ ENGLE Department: Room: A476 1 Gender: F Therapy Assistant: NURSE : 1965 Requested By: ISAAC MORAN Order Number: [id number] Reading MD: Kuldip Celis Measurements Intervals [place] Rate: 72 P: 52 [place]: 206 QRS: 34 QRSD: 87 T: 53 QT: 381 QTc: 418 Interpretive Statements Sinus rhythm Borderline prolonged [place] interval Inferior infarct, acute No previous ECG available for comparison Electronically Signed On 11-05-2021 9:40:50 PDT by Kuldip Celis
== END 2021-11-03 13:58 | disposition home or self-care (01) ==
LOC: ED 02:29 → 4A 05:13
PROVIDERS: ADMIT Internal Medicine Geriatric Medicine; ATTEND Hospitalist
DX: I31.9 Disease of pericardium, unspecified (principal); R07.89 Other chest pain; I10 Essential (primary) hypertension; E11.9 Type 2 diabetes mellitus without complications; R94.31 Abnormal electrocardiogram [ECG] [EKG]; D21.9 Benign neoplasm of connective and other soft tissue, unspecified; R00.1 Bradycardia, unspecified; R55 Syncope and collapse; Z98.891 History of uterine scar from previous surgery; Z87.898 Personal history of other specified conditions; Z79.899 Other long term (current) drug therapy; Z98.890 Other specified postprocedural states
CPT/HCPCS: 36415; 71045; 80053; 80061; 83735; 84439; 84443; 84484; 85025; 85520; 85610; 85730; 93005; 93458; 96365; 96366; 96372; 96375; 96376; 99291; C1887; C1894; C8929; C9113; G0378; J1644; J1815; J1885; J2250; J2270; J2405; J3010; J3490; J7030; J7040; 93306; Q9967